=== PATIENT | male | born 1950 | race Caucasian/White ===

== ENCOUNTER 2016-05-17 16:18 | Emergency (ER) | payer BC ==
[2016-05-17] MEDS ORDERED: Nitroglycerin TAB 0.4 MG* 0.4 MG TAB SL ONE (16:41)
[2016-05-17] MEDS ORDERED: Aspirin Low Dose CHEW TAB* 81 MG PO ONE (16:41)
[2016-05-17] MEDS ORDERED: Al Hydrox/Mg Hydrox/Simet LIQ* 30 ML UDC PO ONE (16:42)
[2016-05-17] MEDS ORDERED: Lidocaine 2% VISCOUS* 15 ML UDC PO ONE (16:42)
[2016-05-17] MEDS ORDERED: NS 0.9% 1000 ML* 1,000 ML IV SCH (16:45)
[2016-05-17] MEDS ORDERED: Aspirin Low Dose CHEW TAB* 81 MG ONE (16:54)
[2016-05-17 17:09] LABS: Hematocrit 39 % (42-52); Hemoglobin 12.7 g/dl (14.0-18.0); Mean Corpuscular HGB Conc 32 g/dl (31-36); Mean Corpuscular Hemoglobin 26 pg (27-31); Mean Corpuscular Volume 81 fL (80-94); Mean Platelet Volume 9 um3 (7.4-10.4); Red Blood Count 4.82 10^6/ul (4.0-5.4); Red Cell Distribution Width 15 % (10.5-15)
[2016-05-17 17:26] LABS: Albumin 4.1 g/dL (3.2-5.2); C Reactive Protein 5.02 mg/L (< 5.00); Calcium 9.5 mg/dL (8.6-10.3); EGFR African American 96.7 (>60); EGFR Non-African American 75.2 (>60); Globulin 2.9 g/dL (2-4); Magnesium 1.8 mg/dL (1.9-2.7); Potassium 3.9 mmol/L (3.5-5.0); Total Bilirubin 0.3 mg/dL (0.2-1.0)
[2016-05-17 17:27] LABS: Troponin I 0.01 ng/mL (<0.04)
[2016-05-17 17:49] LABS: TSH (Thyroid Stimulating Horm) 1.93 mcIU/mL (0.34-5.60)
[2016-05-17 18:11] VITALS: BP 148/79
--- NOTE | 2016-05-17 18:12 | RAD ---
INDICATION: Chest pain COMPARISON: Similar chest x-ray February 28, 2015 TECHNIQUE: Single AP portable view of the chest was obtained. FINDINGS: Image quality is compromised due to the relative inferiority of a portable chest x-ray. The heart and mediastinum exhibit normal size and contour. The lungs are grossly clear. There is no evidence of a large pleural effusion. Visualized bones are normal for the patient's age. IMPRESSION: No radiographic evidence for acute cardiopulmonary abnormality on this portable chest x-ray.
--- NOTE | 2016-05-17 18:20 | ED ---
Leni Riley Erika, scribed for Milton Kessler MD on 05/17/16 at 1654 . HPI Chest Pain - HPI Summary HPI Summary: Patient is a 65-year-old male presenting to the ED with a CC of chest pressure. Pt reports that he has been experiencing the chest pressure intermittently for the past 3-4 days, but today chest pressure has been constant and worsening. Pressure is located mid-sternal, radiates to the back between the shoulder blades, and possibly radiates the the jaw - pt reports he occasionally has jaw pain at baseline because he grinds his teeth. Pain does not radiate to his arms. Pt rates pain a 7/10 currently and at its worst. Pt states pain is improved with PO intake, especially if the food is hot or cold. Pain is aggravated by lying down. Pt has not noted a change in the pain with exertion. Associated symptoms include nausea. Pt denies diaphoresis and SOB, but states he did have some mildly and intermittently before today. He also notes slight edema of the left ankle at baseline. Pt reports his most recent stress test was 2-3 years ago, and he is followed by Dr. Trejo. Hx GERD, HTN, hyperlipidemia, Type II diabetes. FHx cardiac disease in both parents and his brother. Pt does not smoke. - History of Current Complaint Chief Complaint: EDChestPainROMI Time Seen by Provider: 05/17/16 16:31 Hx Obtained From: Patient Onset/Duration: Started Days Ago, Atraumatic, Still Present Timing: Constant - now, Intermittent - at first Current Severity: Moderate Pain Intensity: 6 Pain Scale Used: 0-10 Numeric Chest Pain Location: Mid Sternal Chest Pain Radiates: Yes Chest Pain Radiates To:: Back, Jaw Character: Pressure/Squeezing Aggravating Factor(s): Recumbent Position Alleviating Factor(s): Other: - PO intake Associated Signs and Symptoms: Positive: Nausea. Negative: Shortness of Breath , Diaphoresis - Allergy/Home Medications Allergies/Adverse Reactions: Allergies Allergy/AdvReac Type Severity Reaction Status Date / Time Penicillins [PCN] Allergy Unknown Verified 02/28/15 11:41 Reaction Details PMH/Surg Hx/FS Hx/Imm Hx Endocrine/Hematology History: Reports: Hx Diabetes - Type II Denies: Hx Thyroid Disease Cardiovascular History: Reports: Hx Hypercholesterolemia, Hx Hypertension, Other Cardiovascular Problems/Disorders - current dx pericarditis Denies: Hx Pacemaker/ICD Respiratory History: Reports: Hx Seasonal Allergies, Hx Sleep Apnea - CPAP user Denies: Hx Asthma, Hx Chronic Obstructive Pulmonary Disease (COPD) GI History: Reports: Hx Gastroesophageal Reflux Disease Denies: Hx Ulcer History: Reports: Hx Benign Prostatic Hyperplasia Musculoskeletal History: Reports: Hx Gout Sensory History: Reports: Hx Contacts or Glasses Denies: Hx Hearing Aid Opthamlomology History: Reports: Hx Contacts or Glasses Neurological History: Denies: Other Neuro Impairments/Disorders Psychiatric History: Denies: Hx Panic Disorder - Cancer History Cancer Type, 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 Hx Anesthesia Reactions: No Infectious Disease History: No Infectious Disease History: Denies: Hx Clostridium Difficile, Hx Hepatitis, Hx Human Immunodeficiency Virus (HIV), Hx of Known/Suspected MRSA, Hx Shingles, Hx Tuberculosis, Traveled Outside the in Last 30 Days - Family History Known Family History: Positive: Cardiac Disease - Social History Occupation: Employed Full-time Alcohol Use: Occasionally Hx Substance Use: No Substance Use Type: Reports: None Hx Tobacco Use: No Smoking Status (MU): Never Smoked Tobacco Review of Systems Negative: Skin Diaphoresis ENT: Other - Jaw pain Positive: Chest Pain Negative: Shortness Of Breath Positive: Nausea Musculoskeletal: Other - Back pain Positive: Edema - LLE at baseline All Other Systems Reviewed And Are Negative: Yes Physical Exam Triage Information Reviewed: Yes Vital Signs On Initial Exam: Initial Vitals Temp Pulse Resp BP Pulse Ox 98 F 93 16 171/91 98 05/17/16 16:25 05/17/16 16:25 05/17/16 16:25 05/17/16 16:25 05/17/16 16:25 Vital Signs Reviewed: Yes Appearance: Positive: Well-Appearing, No Pain Distress Skin: Positive: Warm, Skin Color Reflects Adequate Perfusion, Dry Head/Face: Positive: Normal Head/Face Inspection Eyes: Positive: EOMI, MILES ENT: Positive: Normal ENT inspection Neck: Positive: Supple, Nontender Respiratory/Lung Sounds: Positive: Clear to Auscultation, Breath Sounds Present Cardiovascular: Positive: RRR Abdomen Description: Positive: Nontender, Soft Bowel Sounds: Positive: Present Musculoskeletal: Positive: Normal, Strength/ROM Intact Neurological: Positive: Normal, Sensory/Motor Intact, Alert, Oriented to Person Place, Time Psychiatric: Positive: Affect/Mood Appropriate Diagnostics - Vital Signs Vital Signs Temp Pulse Resp BP Pulse Ox 05/17/16 16:25 98 F 93 16 171/91 98 - Laboratory Lab Results: Lab Results 05/17/16 05/17/16 05/17/16 Range/Units 16:40 16:40 16:40 WBC 11.0 H (3.5-10.8) 10^3/ul RBC 4.82 (4.0-5.4) 10^6/ul Hgb 12.7 L (14.0-18.0) g/dl Hct 39 L (42-52) % MCV 81 (80-94) fL MCH 26 L (27-31) pg MCHC 32 (31-36) g/dl RDW 15 (10.5-15) % Plt Count 203 (150-450) 10^3/ul MPV 9 (7.4-10.4) um3 Neut % (Auto) 65.3 (38-83) % Lymph % (Auto) 24.2 L (25-47) % Gregory % (Auto) 7.5 (1-9) % Eos % (Auto) 2.6 (0-6) % Baso % (Auto) 0.4 (0-2) % Absolute Neuts (auto) 7.2 (1.5-7.7) 10^3/ul Absolute Lymphs (auto) 2.7 (1.0-4.8) 10^3/ul Absolute Monos (auto) 0.8 (0-0.8) 10^3/ul Absolute Eos (auto) 0.3 (0-0.6) 10^3/ul Absolute Basos (auto) 0 (0-0.2) 10^3/ul Absolute Nucleated RBC 0.01 10^3/ul Nucleated RBC % 0.1 INR (Anticoag Therapy) 0.91 (0.89-1.11) APTT 32.1 (26.0-36.3) seconds D-Dimer, Quantitative < 200 (Less Than 230) ng/mL Sodium 135 (133-145) mmol/L Potassium 3.9 (3.5-5.0) mmol/L Chloride 102 (101-111) mmol/L Carbon Dioxide 24 (22-32) mmol/L Anion Gap 9 (2-11) mmol/L BUN 14 (6-24) mg/dL Creatinine 1.00 (0.67-1.17) mg/dL Est GFR ( Amer) 96.7 (>60) Est GFR (Non-Af Amer) 75.2 (>60) BUN/Creatinine Ratio 14.0 (8-20) Glucose 222 H (70-100) mg/dL Lactic Acid (0.5-2.0) mmol/L Calcium 9.5 (8.6-10.3) mg/dL Magnesium 1.8 L (1.9-2.7) mg/dL Total Bilirubin 0.30 (0.2-1.0) mg/dL AST 20 (13-39) U/L ALT 35 (7-52) U/L Alkaline Phosphatase 63 (34-104) U/L Total Creatine Kinase 72 (10-223) U/L CK-MB (CK-2) 2.9 (0.6-6.3) ng/mL Troponin I 0.01 (<0.04) ng/mL C-Reactive Protein 5.02 H (< 5.00) mg/L Total Protein 7.0 (6.4-8.9) g/dL Albumin 4.1 (3.2-5.2) g/dL Globulin 2.9 (2-4) g/dL Albumin/Globulin Ratio 1.4 (1-3) Lipase 23 (11.0-82.0) U/L TSH 1.93 (0.34-5.60) mcIU/mL 05/17/16 Range/Units 16:40 WBC (3.5-10.8) 10^3/ul RBC (4.0-5.4) 10^6/ul Hgb (14.0-18.0) g/dl Hct (42-52) % MCV (80-94) fL MCH (27-31) pg MCHC (31-36) g/dl RDW (10.5-15) % Plt Count (150-450) 10^3/ul MPV (7.4-10.4) um3 Neut % (Auto) (38-83) % Lymph % (Auto) (25-47) % Gregory % (Auto) (1-9) % Eos % (Auto) (0-6) % Baso % (Auto) (0-2) % Absolute Neuts (auto) (1.5-7.7) 10^3/ul Absolute Lymphs (auto) (1.0-4.8) 10^3/ul Absolute Monos (auto) (0-0.8) 10^3/ul Absolute Eos (auto) (0-0.6) 10^3/ul Absolute Basos (auto) (0-0.2) 10^3/ul Absolute Nucleated RBC 10^3/ul Nucleated RBC % INR (Anticoag Therapy) (0.89-1.11) APTT (26.0-36.3) seconds D-Dimer, Quantitative (Less Than 230) ng/mL Sodium (133-145) mmol/L Potassium (3.5-5.0) mmol/L Chloride (101-111) mmol/L Carbon Dioxide (22-32) mmol/L Anion Gap (2-11) mmol/L BUN (6-24) mg/dL Creatinine (0.67-1.17) mg/dL Est GFR ( Amer) (>60) Est GFR (Non-Af Amer) (>60) BUN/Creatinine Ratio (8-20) Glucose (70-100) mg/dL Lactic Acid 2.0 (0.5-2.0) mmol/L Calcium (8.6-10.3) mg/dL Magnesium (1.9-2.7) mg/dL Total Bilirubin (0.2-1.0) mg/dL AST (13-39) U/L ALT (7-52) U/L Alkaline Phosphatase (34-104) U/L Total Creatine Kinase (10-223) U/L CK-MB (CK-2) (0.6-6.3) ng/mL Troponin I (<0.04) ng/mL C-Reactive Protein (< 5.00) mg/L Total Protein (6.4-8.9) g/dL Albumin (3.2-5.2) g/dL Globulin (2-4) g/dL Albumin/Globulin Ratio (1-3) Lipase (11.0-82.0) U/L TSH (0.34-5.60) mcIU/mL Result Diagrams: 05/17/16 16:40 05/17/16 16:40 Lab Statement: Any lab studies that have been ordered have been reviewed, and results considered in the medical decision making process. - Radiology CXR Radiology Interpretation Completed By: Radiologist - IMPRESSION: No radiographic evidence for acute cardiopulmonary abnormality on this portable chest x-ray. - EKG 16:25 Cardiac Rate: NL - at 76 bpm EKG Rhythm: Sinus Rhythm Ectopy: None EKG Interpretation: Flat T in III, aVF Re-Evaluation - Re-Evaluation First Eval Re-Evaluation Time: 17:48 Comment: Discussed lab and imaging results and possible admission. Pt prefers discharge Chest Pain Course/Dx - Course Assessment/Plan: PAIN IMPROVED WITH GI COCKTAIL. DISCUSSED RESULTS WITH PATIENT. DISCUSSED ADMISSION WITH PATIENT. PATIENT DECLINES ADMISSION, PREFERS TO F/U WITH HIS PMD/ICE HANDLER. DISCHARGE HOME STABLE. - Diagnoses Provider Diagnoses: Chest pain - Provider Notifications Discussed Care Of Patient With: Dr. Pendleton (hospitalist) at 17:52 - discussed history and risk factors, and that pt requests discharge Discharge - Discharge Plan Condition: Stable Disposition: HOME Patient Education Materials: Chest Pain (ED) Referrals: Naga Pope MD [Primary Care Provider] - Abdirahman Trejo MD [Medical Doctor] - Additional Instructions: FOLLOW UP WITH YOUR PRIMARY CARE DOCTOR AND YOUR ICE HANDLER. RETURN TO THE EMERGENCY DEPARTMENT FOR ANY WORSENING OF YOUR CONDITION; CHEST PAIN, SHORTNESS OF BREATH, YOU FEEL ILL OR QUESTIONS OR CONCERNS. The documentation as recorded by the Leni álvarez Erika accurately reflects the service I personally performed and the decisions made by me, Milton Kessler MD.
== END 2016-05-17 18:29 | disposition home or self-care (01) ==
LOC: ED 16:18
DX: R07.9 Chest pain, unspecified (principal); R11.0 Nausea; R60.9 Edema, unspecified; R68.84 Jaw pain
CPT/HCPCS: 36415; 71010; 80053; 82550; 82553; 83605; 83690; 83735; 84443; 84484; 85025; 85379; 85610; 85730; 86140; 93005; 99283; A9270-GY